=== PATIENT | male | born 1970 | race African-American/Black ===

== ENCOUNTER 2018-03-07 09:26 | Emergency (ER) | payer OTHER ==
[~2018-03-07] VITALS: Ht 188 cm; Wt 90.7 kg
[2018-03-07 09:50] VITALS: BP 120/80
[2018-03-07] MEDS ORDERED: Ketorolac 30mg Inj IV ONE (10:00)
[2018-03-07 10:20] LABS: BASOPHILS % (AUTO) 0.9 % (0.0-2.0); HEMATOCRIT 49.1 % (42.0-52.0); HEMOGLOBIN 16.4 G/DL (14.2-18.0); LYMPHOCYTES % (AUTO) 21.8 % (20.0-45.0); MEAN CORPUSCULAR VOLUME 86 FL (80-99); MONOCYTES % (AUTO) 8.8 % (1.0-10.0); NEUTROPHILS % (AUTO) 67.5 % (45.0-75.0); PLATELET COUNT 130 K/UL (150-450); RED BLOOD COUNT 5.75 M/UL (4.70-6.10); RED CELL DISTRIBUTION WIDTH 12.7 % (11.6-14.8); WHITE BLOOD COUNT 6.6 K/UL (4.8-10.8)
[2018-03-07] MEDS ORDERED: Isovue-300 100ml vial INJ PRN (10:30)
[2018-03-07] MEDS ORDERED: Morphine Sulfate 4mg/ml Inj IVP ONE (10:30)
[2018-03-07 10:32] LABS: ANION GAP 9 mmol/L (5-15); BLOOD UREA NITROGEN 7 mg/dL (7-18); CALCIUM 8.9 MG/DL (8.5-10.1); CARBON DIOXIDE 24 MMOL/L (21-32); CHLORIDE 105 MMOL/L (98-107); CREATININE 0.9 MG/DL (0.55-1.30); POTASSIUM 3.8 MMOL/L (3.5-5.1); SODIUM 138 MMOL/L (136-145)
[2018-03-07 10:36] LABS: ALANINE AMINOTRANSFERASE 145 U/L (12-78); ALKALINE PHOSPHATASE 78 U/L (46-116); ASPARTATE AMINO TRANSFERASE 72 U/L (15-37); BILIRUBIN,TOTAL 0.7 MG/DL (0.2-1.0)
--- NOTE | 2018-03-07 10:40 | Emergency Room Report ---
History of Present Illness General Chief Complaint: Abdominal Pain Source: Patient Present Illness HPI 47-year-old male with 3 days of umbilical abdominal pain. No associated nausea , vomiting, diarrhea. Patient states he has been urinating a lot, but denies any dysuria. Denies any fevers or chills. Patient moved here from [facility] multiple years ago, but has not had any recent travel there. Denies chest pain, SOB, palpitations. Denies known medical problems, history of umbilical aneurysm or dissection. Allergies: Coded Allergies: No Known Allergies (Unverified , 03/07/18) Patient History Past Medical History: none Past Surgical History: none Pertinent Family History: none Social History: Denies: smoking, alcohol use, drug use Immunizations: UTD Reviewed Nursing Documentation: PMH: Agreed; PSxH: Agreed Nursing Documentation-PMH Past Medical History: No Stated History Review of Systems All Other Systems: negative except mentioned in HPI Physical Exam Vital Signs Date Time Temp Pulse Resp B/P (MAP) Pulse Ox O2 Delivery O2 Flow Rate FiO2 03/07/18 09:40 98.2 75 16 114/68 98 Room Air 98.2 Sp02 EP Interpretation: reviewed, normal General Appearance: normal inspection, well appearing, no apparent distress, alert, GCS 15, non-toxic Head: normocephalic, atraumatic Eyes: bilateral eye PERRL, bilateral eye EOMI ENT: normal ENT inspection, hearing grossly normal, normal pharynx, no angioedema, normal voice, TMs + canals normal, uvula midline, moist mucus membranes Neck: normal inspection, full range of motion, supple, thyroid normal, no meningismus, no bony tend Respiratory: normal inspection, lungs clear, normal breath sounds, no rhonchi, no respiratory distress, no retraction, no accessory muscle use, no wheezing, speaking full sentences Cardiovascular #1: regular rate, rhythm, no edema, no JVD, normal capillary refill Gastrointestinal: normal inspection, normal bowel sounds, soft, no mass, no peritonitis, non-distended, no guarding, no hernia, no pulsatile mass, other - mild epigastric ttp Genitourinary: no CVA tenderness Musculoskeletal: normal inspection, back normal, normal range of motion, no calf tenderness, pelvis stable, Jossy's Sign negative Neurologic: normal inspection, alert, oriented x3, responsive, 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 H&h stable. Mild LFT abnormalities UA: negative 1040am: Still with pain after toradol on serial exam Decision made to give IV morphine, CT 1151am: CT unremarkable for acute process On re-HPI, patient states history of bloating pains and "gas" sometimes after eating ?gastritis Reassured patient Recommended PPI daily and Rx Maalox PMD followup ER course: Patient has remained stable during ED stay. Disposition: Patient is to be discharged to home. Prescriptions given are omeprazole, maalox Patient is instructed to follow up with their primary care doctor within 5 days. Strict return precautions discussed with patient such as fever, chills, worsening/severe pain, nausea, vomiting, which may indicate severe illness. Patient verbalizes understanding and agrees with plan. Please note that this Emergency Department Report was dictated using [employer] operator technology software, occasionally this can lead to erroneous entry secondary to interpretation by the dictation equipment EKG Diagnostic Results Rate: normal Rhythm: NSR ST Segments: no acute changes ASA given to the pt in ED: No Rhythm Strip Diag. Results EP Interpretation: yes Rate: 63 Rhythm: NSR, no PVC's, no ectopy Last Vital Signs Date Time Temp Pulse Resp B/P (MAP) Pulse Ox O2 Delivery O2 Flow Rate FiO2 03/07/18 10:25 98.2 03/07/18 09:50 77 18 120/80 100 Room Air Status: improved Disposition: HOME, SELF-CARE JESUSITA ROWAN M.D. Mar 07, 2018 10:40
[2018-03-07 10:43] LABS: APPEARANCE,URINE CLEAR; BILIRUBIN, URINE NEGATIVE (NEGATIVE); COLOR,URINE PALE YELLOW; GLUCOSE, URINE (UA) NEGATIVE (NEGATIVE); KETONES,URINE NEGATIVE (NEGATIVE); LEUKOCYTE ESTERASE ,URINE NEGATIVE (NEGATIVE); NITRITE,URINE NEGATIVE (NEGATIVE); PH,URINE 6 (4.5-8.0); PROTEIN,URINE NEGATIVE (NEGATIVE); UROBILINOGEN,URINE NORMAL MG/DL (0.0-1.0)
[2018-03-07 11:20] VITALS: BP 116/73
--- NOTE | 2018-03-07 11:34 | Diagnostic Imaging Report ---
Clinical Indication: . Helical abdominal pain for 3 days Technique: No oral contrast utilized, per emergency room physician request IV administration nonionic contrast. Venous phase spiral acquisition obtained through the abdomen and pelvis. Multiplanar reconstructions were generated. Total dose length product 786.79 mGycm. CTDIvol(s) 15.03 mGy. Dose reduction achieved using automated exposure control Comparison: none Findings: Lack of enteric contrast limits assessment of the GI tract. Normal appendix. No evidence of diverticulosis or diverticulitis. No small bowel distention. No free or loculated intraperitoneal air or fluid is evident. Distal esophagus, stomach, duodenum are grossly unremarkable. There is mild diastasis of the rectus abdominis tendon centrally, with slight central protrusion in the region of the umbilicus, but no jeet herniation. There is questionably some tiny gallstones in the gallbladder seen on the coronal reconstructions The liver, bile ducts, pancreas, spleen, adrenals, kidneys are all unremarkable. No retroperitoneal or mesenteric mass or adenopathy. No pelvic mass or adenopathy. The included lung bases demonstrate some posterior dependent atelectatic changes. The heart size is upper limits of normal. The bones are unremarkable. Impression: Limited assessment of the GI tract, due to lack of enteric contrast administration No definite acute abnormality. No findings to suggest etiology of stated clinical history of periumbilical pain Equivocal cholelithiasis Minimal posterior dependent pulmonary atelectatic changes The CT scanner at [facility] is accredited by the [employer] and the scans are performed using protocols designed to limit radiation exposure to as low as reasonably achievable to attain images of sufficient resolution adequate for diagnostic evaluation.
[2018-03-07] MEDS ORDERED: MAALOX MAXIMUM355 M1 PO (11:54)
[2018-03-07] MEDS ORDERED: PEPCID AC20 M2 PO (11:54)
[2018-03-07 12:10] VITALS: BP 116/73
--- NOTE | 2018-03-09 15:17 | Cardiology Report ---
APPROVED REPORT EKG Measurement Heart [id number] Normal sinus rhythm Minimal voltage criteria for LVH, may be normal variant Borderline ECG
== END 2018-03-07 12:10 | disposition home or self-care (01) ==
LOC: EMR 10:00
DX: R10.33 Periumbilical pain (principal)
CPT/HCPCS: 36415; 74177; 80053; 81003; 83690; 84484; 85025; 93005; 96374; 96375; 99284; J1885; J2270; J2405; Q9967

== ENCOUNTER 2019-12-10 03:43 | Emergency (ER) | payer MEDICAID, OTHER ==
[~2019-12-10] VITALS: Ht 188 cm; Wt 113.4 kg
[~2019-12-10 03:43] MED LIST: ACETAMINOP650 MG/20. ORAL; ACETAMINOPHEN-1 EAC1 ORAL; AMOXICILLIN500 MG ORAL; BACTRIM-DS1 EA ORAL; CEPHALEXIN500 MG ORAL; CORTISPORIN EAR10 ML OTIC; IBUPROFEN600 MG ORAL; MAALOX MAXIMUM355 M1 PO; NKM; NORCO 5-325 TA1 EACH ORAL; PEPCID AC20 M2 PO; ZANTAC150 MG ORAL
--- NOTE | 2019-12-10 03:54 | NUR ---
ED Nurse Note: pt presents to ED c/o mid-sternal/epigastric px that started earlier this morning when the pt was coughing. pt reports that he has had a cough for months. pt states that the pain radiates to his back, he is also nauseous and vomiting. pt did not take anything [employer] for symptoms, denies any recent travel, fevers or SOB at this time.
[2019-12-10 03:56] VITALS: BP 103/78
[2019-12-10] MEDS ORDERED: Ketorolac 60mg Inj IM ONE (04:15)
--- NOTE | 2019-12-10 04:15 | Emergency Room Report ---
History of Present Illness General Chief Complaint: Chest Pain Source: Patient Present Illness HPI Patient presents with complaints of cough this been ongoing for the past 2 weeks also now is having upper mid chest pain Denies any vomiting or diarrhea denies any pleurisy Denies any obvious fevers Patient reports that he is given acetaminophen by his primary physician Otherwise denies any lower abdominal pain denies any recent travel denies any other sick contact COVID-19 risk:Travel to affect: No Allergies: Coded Allergies: No Known Allergies (Unverified , 03/07/18) Patient History Past Medical History: see triage record Reviewed Nursing Documentation: PMH: Agreed; PSxH: Agreed Nursing Documentation-PMH Past Medical History: No Stated History Review of Systems All Other Systems: negative except mentioned in HPI Physical Exam Vital Signs Date Time Temp Pulse Resp B/P (MAP) Pulse Ox O2 Delivery O2 Flow Rate FiO2 12/10/19 03:49 97.7 78 17 103/78 (86) 99 Room Air Sp02 EP Interpretation: reviewed, normal General Appearance: well appearing, no apparent distress Head: normocephalic, atraumatic Eyes: bilateral eye PERRL, bilateral eye EOMI ENT: hearing grossly normal, normal pharynx, TMs + canals normal, uvula midline Neck: full range of motion, supple, no meningismus, no bony tend Respiratory: lungs clear, normal breath sounds, no rhonchi, no respiratory distress, no retraction, no accessory muscle use Cardiovascular #1: normal peripheral pulses, regular rate, rhythm, no edema, no gallop, no JVD, no murmur Gastrointestinal: normal bowel sounds, non tender, soft, no mass, no organomegaly, non-distended, no guarding, no hernia, no pulsatile mass, no rebound Genitourinary: no CVA tenderness Musculoskeletal: normal inspection Neurologic: motor strength/tone normal, 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, oriented x3 , sensory intact, responsive Psychiatric: mood/affect normal Skin: no rash Lymphatic: normal inspection, no adenopathy Medical Decision Making Diagnostic Impression: Primary Impression: Chest pain ER Course Patient is a fairly complex patient with multiple differential to consideration including but not limited to cardiac cardiopulmonary and vascular emergencies Patient otherwise feels fairly comfortable EKG was done which was normal chest x-ray showed normal findings Patient's family is asking if the patient has coronavirus I discussed with him that The Department of Health does not recommend testing for this patient at this time There is any further high fever or dyspnea they require to return to the ER more emergently EKG Diagnostic Results Rate: normal Rhythm: NSR ST Segments: no acute changes Rhythm Strip Diag. Results EP Interpretation: yes Rate: 70 Rhythm: NSR, no PVC's, no ectopy Chest X-Ray Diagnostic Results Chest X-Ray Diagnostic Results : Chest X-Ray Ordered: Yes # of Views/Limited/Complete: 1 View Indication: Chest Pain EP Interpretation: Yes Interpretation: no consolidation, no effusion, no pneumothorax Impression: No acute disease Electronically Signed by: Danielle Chou DO Last Vital Signs Date Time Temp Pulse Resp B/P (MAP) Pulse Ox O2 Delivery O2 Flow Rate FiO2 12/10/19 03:56 78 17 Room Air 12/10/19 03:56 97.7 103/78 99 Status: improved Disposition: HOME, SELF-CARE Condition: Improved Scripts Guaifenesin/Dextromethorphan (Robitussin Cough-Chest Dm Liq) 237 Ml Liquid 10 ML PO QHS for 5 Days, ML Prov: Danielle Chou DO 12/10/19 Additional Instructions: Patient is provided with the discharge instructions notified to follow up with primary doctor in the next 2-3 days otherwise return to the er with any worsening symptoms. Please note that this report is being documented using [employer] technology. This can lead to erroneous entry secondary to incorrect interpretation by the dictating instrument. Danielle Chou DO Dec 10, 2019 04:15
[2019-12-10] MEDS ORDERED: ROBITUSSIN COU237 M2 PO (04:39)
[2019-12-10 04:45] VITALS: BP 103/78
--- NOTE | 2019-12-10 04:45 | NUR ---
ER DISCHARGE NOTE: Patient is cleared to be discharged per ERMD, pt is aox4, on room air, with stable vital signs. pt was given dc and prescription instructions, pt was able to verbalize understanding, pt id band removed without complications. pt is able to ambulate with steady gait. pt took all belongings.
--- NOTE | 2019-12-10 08:18 | Diagnostic Imaging Report ---
Indication: Cough Technique: One view of the chest Comparison: none Findings: There is mild interstitial prominence and central bronchial wall thickening. The heart size is normal. The pleural spaces are clear. Impression: Mild interstitial prominence and central bronchial wall thickening, likely bronchitis. Mild interstitial congestion also possible
== END 2019-12-10 04:45 | disposition home or self-care (01) ==
LOC: EMR 04:00
DX: R07.9 Chest pain, unspecified (principal); R05 Cough
CPT/HCPCS: 71045; 93005; 96372; Z7502; 99283